=== PATIENT | female | born 1965 | race Caucasian/White ===

== ENCOUNTER → 2016-07-22 | Outpatient (CLI) | payer MEDICAID, OTHER ==
--- NOTE | 2016-07-22 11:35 | MA ---
Diagnostic Digital Right Mammogram With Tomosynthesis Clinical Indications: Follow-up nodular density Technique: Standard digital cephalocaudal and tomosy nthesis mediolateral oblique projections are obtained of the right breast. An exaggerated digital CC view was also performed. The digital images were processed by the iCAD computer aided detection ellene m. Comparison: December 24, 2015 and diagnostic right mammogram December 27, 2015, 2014 and 2011 Breast density: B Findings: CAD was reviewed. A small nodular density deep in the upper right breast is stable on the o blique lateral tomography, as is the adjacent breast parenchyma. A vague asymmetry deep in the outer right breast looks stable, and may represent the same area. The remainder of the breast architectural pattern is stable. Impression: Stable densities in the right breast since December 2015, and likely back to 2011 . Recommendation: Attention to this area at the time of the patient's screening mammogram in December 2016 , which should be ordered as a diagnostic bilateral mammogram. Results and recommendation were communicated to the patient at the time of the examination. [facility] result [facility] to the patient. BI-RADS 3. Probably benign. Negative mammography should not preclude additional workup of a clinically suspicious finding. The patient's information is entered into a reminder system with a target due date for her next mammo gram. Diagnostic
== END ==
LOC: FIMAGING 10:59
PROVIDERS: ATTEND Obstetrics & Gynecology
DX: R92.8 Other abnormal and inconclusive findings on diagnostic imaging of breast (principal)
CPT/HCPCS: G0206; G0279

== ENCOUNTER → 2016-12-08 | Outpatient (CLI) | payer MEDICAID | LOC: FIMAGING 09:31 | PROVIDERS: ATTEND Obstetrics & Gynecology | DX: Z12.39 Encounter for other screening for malignant neoplasm of breast (principal); R92.8 Other abnormal and inconclusive findings on diagnostic imaging of breast | CPT/HCPCS: G0204 ==